=== PATIENT | male | born 1985 | race Caucasian/White ===

== ENCOUNTER → 2020-02-07 | Outpatient (CLI) | payer OTHER | END | disposition home or self-care (01) | LOC: LAB 13:20 | PROVIDERS: ATTEND Nurse Anesthetist, Certified Registered | DX: Z11.59 Encounter for screening for other viral diseases (principal) | CPT/HCPCS: C9803; U0003 ==

== ENCOUNTER → 2020-02-12 | Day surgery (SDC) | payer OTHER ==
[~2020-02-12] MED LIST: IPRATRPIUM/ALBUTEROL 0.5/2.5MG 3 ML NEBU. NEB PRN; IV RINGERS SOLUTION,LACTATED 1,000 ML IV SCH; ONDANSETRON PF 4 MG/2 ML VIAL. IV PRN; PROPOFOL 10,000 MCG/ML (20ML) VIAL IV ONE
[2020-02-12 09:30] VITALS: BP 138/74
--- NOTE | 2020-02-13 17:07 | PATHOLOGY ---
[facility] Accession Number: [id number] . 01 Material submitted: . PART A: colon - RANDOM BIOPSY PART B: rectum - RECTAL POLYP . 02 Diagnosis: A. Colonic mucosa, random colon biopsies: - No significant pathologic abnormalities. . B. Colorectal biopsy, rectal polyp: - Hyperplastic polyp. ([facility] 02/13/2020) [facility] 02/13/2020 1342 Local . 02 Comment: Sections of the random colon biopsy reveal multiple segments of colonic mucosa containing a few mucosal-associated lymphoid aggregates. There is no evidence of a chronic destructive colitis, lymphocytic colitis, or collagenous colitis. . Sections of the rectal biopsy reveal a hyperplastic polyp. There are no adenomatous changes or evidence of malignancy. ([facility] 02/13/2020) . 02 Electronically signed: . Bryan Cook MD, Pathologist NPI- [id number] . 01 Gross description: . A. The specimen is received in formalin, labeled "Sutfin, Frank, random BX" and consists of multiple fragments of white tissue measuring 2.0 x 0.6 x 0.3 cm in aggregate which are entirely submitted in A1. . B. The specimen is received in formalin, labeled "Sutfin, Frank, rectal polyp" and consists of a fragment of pink-white tissue measuring 0.7 x 0.3 x 0.2 cm which is entirely submitted in B1. ([facility]; 02/12/2020) [facility]U 02/12/2020 1708 Local . 02 Pathologist provided ICD-10: K62.1 . 02 CPT . 537339, 556003 Specimen Comment: A courtesy copy of this report has been sent to [phone] Specimen Comment: Report sent to / DR RAPHAEL Performed at: 01 [facility] [address] [facility] [address], [place] [id number] MD Parker Castro MD Phone: [phone] Performed at: 02 [facility] [address], [place] [id number] MD Bryan Cook MD Phone: [phone]
== END ==
LOC: SURG 07:26
PROVIDERS: ATTEND Internal Medicine Gastroenterology
DX: K92.1 Melena (principal); K62.1 Rectal polyp; K64.0 First degree hemorrhoids; K64.4 Residual hemorrhoidal skin tags; Z72.89 Other problems related to lifestyle; Z91.040 Latex allergy status
CPT/HCPCS: 45380; 45385; 88305; J2704; J7120

== ENCOUNTER 2020-09-08 16:11 | Emergency (ER) | payer OTHER ==
[~2020-09-08] VITALS: Ht 193 cm; Wt 109.0 kg
--- NOTE | 2020-09-08 16:48 | PHYS DOC ---
Past History Past Medical History: No Pertinent History (BIJU LEDESMA APRN) Past Surgical History: Other Additional Past Surgical Histo: SURGERY FOR DEVIATED SEPTUM X 3 WEEKS (BIJU LEDESMA APRN) Alcohol Use: Occasionally (BIJU LEDESMA APRN) General Adult EDM: Chief Complaint: NAUSEA/VOMITING/DIARRHEA HPI: HPI: Patient is a 35-year-old male who presents with nausea/vomiting and fatigue since yesterday. Patient states that he has vomited 3 times today. Patient states that he has had no energy all day and slept until 2 PM today. Patient denies fever, cough or known Covid exposure. Patient does state that his daughter was sick 2 days ago and was also vomiting. Patient reports abdominal pain, crampy. Patient denies taking anything at home for pain or nausea. Patient denies medical history. (BIJU LEDESMA APRN) Review of Systems: Review of Systems: Constitutional: Denies fever or chills Eyes: Denies change in visual acuity HENT: Denies nasal congestion or sore throat Respiratory: Denies cough or shortness of breath Cardiovascular: Denies chest pain or edema GI: Reports abdominal pain, nausea, vomiting. denies bloody stools or diarrhea : Denies dysuria Musculoskeletal: Denies back pain or joint pain Integument: Denies rash Neurologic: Denies headache, focal weakness or sensory changes Endocrine: Denies polyuria or polydipsia Lymphatic: Denies swollen glands Psychiatric: Denies depression or anxiety (BIJU LEDESMA APRN) Allergies: Allergies: Allergies Coded Allergies Type Severity Reaction Last Updated Verified latex Allergy Unknown rash 02/12/20 Yes (BIJU LEDESMA APRN) Physical Exam: PE: Constitutional: Well developed, well nourished, no acute distress, non-toxic appearance. [] HENT: Normocephalic, atraumatic, bilateral external ears normal, oropharynx moist, no oral exudates, nose normal. [] Eyes: PERRLA, EOMI, conjunctiva normal, no discharge. [] Neck: Normal range of motion, no tenderness, supple, no stridor. [] Cardiovascular:Heart rate regular rhythm, no murmur [] Lungs & Thorax: Bilateral breath sounds clear to auscultation [] Abdomen: Bowel sounds normal, soft, no tenderness Skin: Warm, dry, no erythema, no rash. [] Back: No tenderness, no CVA tenderness. [] Extremities: No tenderness, no cyanosis, no clubbing, ROM intact, no edema. [] Neurologic: Alert and oriented X 3, normal motor function, normal sensory function, no focal deficits noted. [] Psychologic: Affect normal, judgement normal, mood normal. [] (BIJU LEDESMA APRN) Current Patient Data: Vital Signs: Vital Signs Date Time Temp Pulse Resp B/P (MAP) Pulse Ox O2 Delivery O2 Flow Rate FiO2 09/08/20 16:20 98.3 94 20 131/83 (99) 97 Room Air (BIJU LEDESMA APRN) EKG: EKG: [] (BIJU LEDESMA APRN) Radiology/Procedures: Radiology/Procedures: []EXAM: CT Abdomen and Pelvis without IV contrast INDICATION: Reason: abdominal pain / Spl. Instructions: / History: TECHNIQUE: Multi-detector row CT images were acquired from the lung bases through the abdomen and pelvis without the use of IV contrast. Sagittal and coronal images were acquired from the transaxial data. All CT scans performed at this facility utilize dose optimization techniques as appropriate to the exam, including the following: Automated exposure control and adjustment of the mA and/or KV according to patient size (this includes techniques or standardized protocols for targeted exams where dose is indication/reason for exam). ORAL CONTRAST: None COMPARISON: None FINDINGS: The absence of IV contrast limits evaluation of soft tissue pathology. LOWER CHEST: Unremarkable LIVER: Unremarkable BILIARY SYSTEM: Gallbladder is unremarkable. Bile ducts are not dilated. PANCREAS: Unremarkable SPLEEN: Unremarkable ADRENALS: Unremarkable KIDNEYS & URETERS: Unremarkable BLADDER: Unremarkable REPRODUCTIVE ORGANS: Unremarkable GASTROINTESTINAL: The stomach, small bowel, and colon are unremarkable. The appendix is normal. MESENTERY/PERITONEUM/RETROPERITONEUM: Mild prominence of the mesenteric lymph nodes is present with misting of the mesentery in the mid upper abdomen. VASCULAR: Unremarkable LYMPH NODES: No bulky adenopathy but mild prominence of the mesenteric lymph nodes is present. OSSEOUS & SOFT TISSUES: Unremarkable IMPRESSION: Findings suggestive of mild mesenteric adenitis. Otherwise unremarkable noncont rast abdomen pelvis CT. Electronically signed by: Juliet Parra MD (09/08/2020 5:38 PM) [id number] DICTATED AND SIGNED BY: JULIET PARRA MD DATE: 09/08/20 173 CC: DARRELL RAPHAEL; BIJU LEDESMA APRN ~MTH0 0 (BIJU LEDESMA APRN) Heart Score: Risk Factors: Risk Factors: DM, Current or recent (<one month) smoker, HTN, HLP, family history of CAD, obesity. Risk Scores: Score 0 - 3: 2.5% MACE over next 6 weeks - Discharge Home Score 4 - 6: 20.3% MACE over next 6 weeks - Admit for Clinical Observation Score 7 - 10: 72.7% MACE over next 6 weeks - Early Invasive Strategies (BIJU LEDESMA APRN) Course & Med Decision Making: Course & Med Decision Making Pertinent Labs and Imaging studies reviewed. (See chart for details) []Patient is a 35-year-old male who presents with nausea/vomiting and fatigue since yesterday. Patient states that he has vomited 3 times today. Patient states that he has had no energy all day and slept until 2 PM today. Patient denies fever, cough or known Covid exposure. Patient does state that his daughter was sick 2 days ago and was also vomiting. Patient reports abdominal pain, crampy. Patient denies taking anything at home for pain or nausea. Patient denies medical history. Zofran, fluids, Bentyl ordered for nausea and pain. Labs, CT abdomen and pelvis, UA ordered. CT is negative for any acute abnormalities.Patient reports that abdominal pain and nausea have improved after medications.Patient will discharge to home with prescription for zofran and bentyl. Patient is hemodynamically stable and symptoms are controlled. Patient is okay with this plan. Impression 1.gastroenteritis (BIJU LEDESMA APRN) Dragon Disclaimer: Trena Disclaimer: This electronic medical record was generated, in whole or in part, using a voice recognition dictation system. (BIJU LEDESMA APRN) Departure Departure: Impression: Primary Impression: Nausea & vomiting Qualified Codes: R11.2 - Nausea with vomiting, unspecified Disposition: 01 DC HOME SELF CARE/HOMELESS Condition: GOOD Referrals: DARRELL RAPHAEL (PCP) Patient Instructions: Viral Gastroenteritis, [id number] Additional Instructions: You were seen in the emergency room today for abdominal pain and nausea. Pain medication and nausea medication were given with improvement of symptoms. You have a viral gastroenteritis and symptoms should improve in the next 24 hours. Please make sure to increase your fluids. You can take Tylenol or ibuprofen for discomfort. I have also provided you with a prescription for nausea and also for cramping. Please return to the emergency room with worsening symptoms or concerns. Otherwise you may follow-up with your primary care physician. EMERGENCY DEPARTMENT GENERAL DISCHARGE INSTRUCTIONS Thank you for coming to [facility] (ED) today and trusting us with you care. We trust that you had a positivie experience in our Emergency Department. If you wish to speak to the department management, you may call the director at [phone]. YOUR FOLLOW UP INSTRUCTIONS ARE FOLLOWS: 1. Do you have a private Doctor? If you do not have a private doctor, please ask for a resource list of physicians or clinics that may be able to assist you with follow up care. 2. The Emergency Physician has interpreted your x-rays. The X-Ray specialist will also review them. If there is a change in the findings, you will be notified in 48 hours when at all possible. 3. A lab test or culture has been done, your results will be reviewed and you will be notified if you need a change in treatment. ADDITIONAL INSTRUCTIONS AND INFORMATION: 1. Your care today has been supervised by a physician who is specially trained in emergency care. Many problems require more than one evaluation for a complete diagnosis and treatment. We recommend that you schedule your follow up appointment as recommended to ensure complete treatment of you illness or injury. If you are unable to obtain follow up care and continue to have a problem, or if your condition worsens, we recommend that you return to the ED. 2. We are not able to safely determine your condition over the phone nor are we able to give sound medical advice over the phone. For these safety reasons, if you call for medical advice we will ask you to come to the ED for further evaluation. 3. If you have any questions regarding these discharge instructions please call the ED at [phone]. SAFETY INFORMATION: In the interest of safety, wellness, and injury prevention; we encourage you to wear your sealbelt, if you smoke; quite smoking, and we encourage family to use a protective helmet for bicycling and other sporting events that present an increased risk for head injury. IF YOUR SYMPTOMS WORSEN OR NEW SYMPTOMS DEVELOP, OR YOU HAVE CONCERNS ABOUT YOUR CONDITION; OR IF YOUR CONDITION WORSENS WHILE YOU ARE WAITING FOR YOUR FOLLOW UP APPOINTMENT; EITHER CONTACT YOUR PRIMARY CARE DOCTOR, THE PHYSICIAN WHOSE NAME AND NUMBER YOU WERE GIVEN, OR RETURN TO THE ED IMMEDIATELY. Scripts Dicyclomine Hcl (DICYCLOMINE HCL) 10 Mg Capsule 10 MG PO Q6HRS for cramping for 2 Days, #8 CAP Prov: BIJU LEDESMA APRN 09/08/20 Ondansetron Hcl (ZOFRAN) 4 Mg Tablet 4 MG PO TID PRN PRN for NAUSEA, #9 TAB Prov: BIJU LEDESMA APRN 09/08/20 Attending Signature Attending Signature I have reviewed the PA/MANAGER [employer]'s note and plan of care. I was available for consultation as needed during the patient's visit in the emergency department. I agree with the clinical impression, plan, and disposition. (ASTER LOMBARDO DO) BIJU LEDESMA APRN Sep 08, 2020 16:48 ASTER LOMBARDO DO Sep 09, 2020 00:32
[2020-09-08] MEDS ORDERED: ONDANSETRON PF 4 MG/2 ML VIAL. IVP ONE (17:00)
[2020-09-08] MEDS ORDERED: IV NORMAL SALINE 1,000ML 1,000 ML IV ONE (17:00)
[2020-09-08] MEDS ORDERED: DICYCLOMINE HCL 20 MG TABLET PO ONE (17:00)
--- NOTE | 2020-09-08 17:40 | RAD ---
EXAM: CT Abdomen and Pelvis without IV contrast INDICATION: Reason: abdominal pain / Spl. Instructions: / History: TECHNIQUE: Multi-detector row CT images were acquired from the lung bases through the abdomen and pel vis without the use of IV contrast. Sagittal and coronal images were acquired from the transaxial harsh a. All CT scans performed at this facility utilize dose optimization techniques as appropriate to the exam, including the following: Automated exposure control and adjustment of the mA and/or KV accordi ng to patient size (this includes techniques or standardized protocols for targeted exams where dose is indication/reason for exam). ORAL CONTRAST: None COMPARISON: None FINDINGS: The absence of IV contrast limits evaluation of soft tissue pathology. LOWER CHEST: Unremarkable LIVER: Unremarkable BILIARY SYSTEM: Gallbladder is unremarkable. Bile ducts are not dilated. PANCREAS: Unremarkable SPLEEN: Unremarkable ADRENALS: Unremarkable KIDNEYS & URETERS: Unremarkable BLADDER: Unremarkable REPRODUCTIVE ORGANS: Unremarkable GASTROINTESTINAL: The stomach, small bowel, and colon are unremarkable. The appendix is normal. MESENTERY/PERITONEUM/RETROPERITONEUM: Mild prominence of the mesenteric lymph nodes is present with m isting of the mesentery in the mid upper abdomen. VASCULAR: Unremarkable LYMPH NODES: No bulky adenopathy but mild prominence of the mesenteric lymph nodes is present. OSSEOUS & SOFT TISSUES: Unremarkable IMPRESSION: Findings suggestive of mild mesenteric adenitis. Otherwise unremarkable noncontrast abdomen pelvis CT . Electronically signed by: Christa Parra MD (09/08/2020 5:38 PM) [id number]
[2020-09-08 18:06] LABS: BASO % 0 % (0-3); EOS # 0.1 x10^3/uL (0.0-0.7); EOS % 1 % (0-3); HEMATOCRIT 47.1 % (39.0-53.0); HEMOGLOBIN 15.8 g/dL (13.0-17.5); LYMPH # 0.4 x10^3/uL (1.0-4.8); LYMPH % 5 % (24-48); MEAN CORPUSCULAR HEMOGLOBIN 31 pg (25-35); MEAN CORPUSCULAR HGB CONC 34 g/dL (31-37); MEAN CORPUSCULAR VOLUME 91 fL (79-100); MONO # 0.6 x10^3/uL (0.0-1.1); MONO % 7 % (0-9); NEUT # 7.5 x10^3uL (1.8-7.7); NEUT % 87 % (31-73); PLATELET COUNT 183 x10^3/uL (140-400); RED BLOOD COUNT 5.19 x10^6/uL (4.30-5.70); RED CELL DISTRIBUTION WIDTH 12.7 % (11.5-14.5); WHITE BLOOD COUNT 8.6 x10^3/uL (4.0-11.0)
[2020-09-08 18:09] LABS: CREATININE 1.3 mg/dL (0.7-1.3); GFR 63.2; POTASSIUM 3.8 mmol/L (3.5-5.1)
[2020-09-08 18:14] LABS: ALBUMIN 4.1 g/dL (3.4-5.0); ALBUMIN/GLOBULIN RATIO 1.1 (1.0-1.7); TOTAL BILIRUBIN 0.8 mg/dL (0.2-1.0); TOTAL PROTEIN 7.7 g/dL (6.4-8.2)
[2020-09-08 18:25] LABS: BILIRUBIN,URINE NEG (NEG); CLARITY,URINE CLEAR; COLOR,URINE YELLOW; GLUCOSE,URINE NEG (NEG)
[2020-09-08 18:26] LABS: BACTERIA,URINE 0 /HPF (0-FEW); NITRITE,URINE NEG (NEG); RBC,URINE 0 /HPF (0-2); UROBILINOGEN,URINE 0.2 mg/dL (0.2 mg/dL); WBC,URINE 0 /HPF (0-4)
[2020-09-08] MEDS ORDERED: ONDA4TAB7 PO (18:38)
[2020-09-08] MEDS ORDERED: DICY10CA3 PO (18:38)
[2020-09-08 19:00] VITALS: BP 116/81
== END 2020-09-08 19:03 | disposition home or self-care (01) ==
LOC: ER 16:11
DX: K52.9 Noninfective gastroenteritis and colitis, unspecified (principal); Z20.822 Contact with and (suspected) exposure to COVID-19; Z91.040 Latex allergy status
CPT/HCPCS: 36415; 74176; 80053; 81001; 83690; 85025; 96361; 96374; 99284; J2405; J7030; U0003; C9803

== ENCOUNTER 2020-09-22 10:25 | Emergency (ER) | payer OTHER ==
[~2020-09-22 10:25] MED LIST changes: +DICY10CA3 PO; -IPRATRPIUM/ALBUTEROL 0.5/2.5MG 3 ML NEBU. NEB PRN; -IV RINGERS SOLUTION,LACTATED 1,000 ML IV SCH; +ONDA4TAB7 PO; -ONDANSETRON PF 4 MG/2 ML VIAL. IV PRN; -PROPOFOL 10,000 MCG/ML (20ML) VIAL IV ONE
[2020-09-22] MEDS ORDERED: DEXAMETHASONE 4 MG TABLET PO ONE (10:58)
--- NOTE | 2020-09-22 13:59 | PHYS DOC ---
Past History Past Medical History: No Pertinent History Past Surgical History: Other Additional Past Surgical Histo: SURGERY FOR DEVIATED SEPTUM X 3 WEEKS Alcohol Use: Occasionally General Adult EDM: Chief Complaint: ALLERGIC REACTION HPI: HPI: Patient is a [age] year old [sex] who presents with [] Review of Systems: Review of Systems: y Current Medications: Current Meds: Current Medications Medications (Trade) Dose Ordered Sig/Rosie Start Time Stop Time Status Last Admin Dose Admin Dexamethasone (Decadron) 10 mg 1X ONCE 09/22/20 10:58 09/22/20 13:00 DC Allergies: Allergies: Allergies Coded Allergies Type Severity Reaction Last Updated Verified latex Allergy Unknown rash 02/12/20 Yes EKG: EKG: [] Radiology/Procedures: Radiology/Procedures: [] Heart Score: Risk Factors: Risk Factors: DM, Current or recent (<one month) smoker, HTN, HLP, family history of CAD, obesity. Risk Scores: Score 0 - 3: 2.5% MACE over next 6 weeks - Discharge Home Score 4 - 6: 20.3% MACE over next 6 weeks - Admit for Clinical Observation Score 7 - 10: 72.7% MACE over next 6 weeks - Early Invasive Strategies Course & Med Decision Making: Course & Med Decision Making Pertinent Labs and Imaging studies reviewed. (See chart for details) DUE TO PROLONGED EMR DOWNTIME/HOSPITAL POLICY, PTS' FULL CHART (INCLUDING, HISTORY, ROS, PHYSICAL EXAM, IMPRESSION, IMAGING/LABS/ORDERS, DISPOSITION AND DISCHARGE PAPERS) -WAS DOCUMENTED VIA PAPER CHARTING. - PLEASE REFER TO PAPER DOCUMENTS FOR FULL INFORMATION REGARDING PTS' ED VISIT. Dragon Disclaimer: Trena Disclaimer: This electronic medical record was generated, in whole or in part, using a voice recognition dictation system. Departure Departure: Impression: Primary Impression: Facial rash Disposition: 01 DC HOME SELF CARE/HOMELESS Condition: STABLE MARINA CARDONA Sep 22, 2020 13:59
== END 2020-09-22 11:15 | disposition home or self-care (01) ==
LOC: ER 10:25
DX: R21 Rash and other nonspecific skin eruption (principal); R11.10 Vomiting, unspecified; R19.7 Diarrhea, unspecified; Z91.040 Latex allergy status
CPT/HCPCS: 99281